=== PATIENT | male | born 1980 | race Caucasian/White ===

== ENCOUNTER 2017-06-30 15:30 | Emergency (ER) | payer OTHER ==
[~2017-06-30] VITALS: Ht 188 cm; Wt 99.8 kg
[2017-06-30 15:43] VITALS: BP 137/90
== END 2017-06-30 16:47 | disposition home or self-care (01) ==
LOC: ER 15:31
DX: F41.9 Anxiety disorder, unspecified (principal); Z76.0 Encounter for issue of repeat prescription; F42.9 Obsessive-compulsive disorder, unspecified; I10 Essential (primary) hypertension; F17.200 Nicotine dependence, unspecified, uncomplicated
CPT/HCPCS: 99283; A4606; Z7610

== ENCOUNTER 2017-07-08 12:07 | Emergency (ER) | payer OTHER ==
[~2017-07-08] VITALS: Ht 188 cm; Wt 68.0 kg
[2017-07-08 12:07] VITALS: BP 138/88
--- NOTE | 2017-07-08 12:20 | NUR ---
PT WALKED INTO ER FOR BLISTERS ON FEET PT HOMELESS ALERT WITH ORIENTATION X 4
--- NOTE | 2017-07-08 12:39 | NUR ---
Patient discharged to home in stable condition. Written and verbal after care instructions given. Patient verbalizes understanding of instruction. PT HAD BOTH FEET WRAPPED WITH GAUZE DISCHARGE HOME WITH PRESCRIPTION
== END 2017-07-08 12:38 | disposition home or self-care (01) ==
LOC: ER 12:18
DX: S90.822A Blister (nonthermal), left foot, initial encounter (principal); S90.821A Blister (nonthermal), right foot, initial encounter; F41.9 Anxiety disorder, unspecified; F42.9 Obsessive-compulsive disorder, unspecified; I10 Essential (primary) hypertension; F17.200 Nicotine dependence, unspecified, uncomplicated; Z59.0 Homelessness; X58.XXXA Exposure to other specified factors, initial encounter; Y93.01 Activity, walking, marching and hiking; Y92.89 Other specified places as the place of occurrence of the external cause; Y99.8 Other external cause status
CPT/HCPCS: 99283; A4606; A6402; Z7610

== ENCOUNTER 2017-09-13 15:37 | Emergency (ER) | payer OTHER ==
[~2017-09-13] VITALS: Ht 188 cm; Wt 77.1 kg
[2017-09-13 15:37] VITALS: BP 135/92
== END 2017-09-13 17:22 | disposition home or self-care (01) ==
LOC: ER 15:40
DX: M79.671 Pain in right foot (principal); Z76.0 Encounter for issue of repeat prescription; F41.9 Anxiety disorder, unspecified; K12.0 Recurrent oral aphthae; I10 Essential (primary) hypertension; F42.9 Obsessive-compulsive disorder, unspecified; F17.200 Nicotine dependence, unspecified, uncomplicated; Z59.0 Homelessness
CPT/HCPCS: 73630; 99284; 99406; A4606; Z7610

== ENCOUNTER 2018-04-19 13:11 | Emergency (ER) | payer OTHER ==
[~2018-04-19] VITALS: Ht 188 cm; Wt 77.1 kg
[2018-04-19 13:17] VITALS: BP 149/107
== END 2018-04-19 14:18 | disposition home or self-care (01) ==
LOC: ER 13:11
DX: B86 Scabies (principal); F17.200 Nicotine dependence, unspecified, uncomplicated; I10 Essential (primary) hypertension; F32.9 Major depressive disorder, single episode, unspecified; Z59.0 Homelessness
CPT/HCPCS: 99283; 99406; A4606; Z7610

== ENCOUNTER 2019-06-06 10:13 | Emergency (ER) | payer OTHER ==
[~2019-06-06] VITALS: Ht 177.8 cm; Wt 79.4 kg
[2019-06-06 10:27] VITALS: BP 144/86
--- NOTE | 2019-06-06 11:18 | NUR ---
PT PROVIDED W/ WOUND CARE. PROVIDED W/ MEAL TRAY. PT SIGNED HOMELESS WAIVER. D/C IN STABLE CONDITION.
== END 2019-06-06 11:23 | disposition home or self-care (01) ==
LOC: ER 10:18
DX: S90.522A Blister (nonthermal), left ankle, initial encounter (principal); S90.521A Blister (nonthermal), right ankle, initial encounter; S90.425A Blister (nonthermal), left lesser toe(s), initial encounter; S90.424A Blister (nonthermal), right lesser toe(s), initial encounter; I10 Essential (primary) hypertension; F17.200 Nicotine dependence, unspecified, uncomplicated; Z59.0 Homelessness; X58.XXXA Exposure to other specified factors, initial encounter; Y93.01 Activity, walking, marching and hiking; Y92.89 Other specified places as the place of occurrence of the external cause; Y99.8 Other external cause status
CPT/HCPCS: 99281; A6403

== ENCOUNTER 2019-08-25 14:42 | Emergency (ER) | payer OTHER ==
[~2019-08-25] VITALS: Ht 182.9 cm; Wt 68.0 kg
[2019-08-25 14:53] VITALS: BP 139/93
--- NOTE | 2019-08-25 14:58 | NUR ---
Patient changed his mind and walked out- Eloped. notified
== END 2019-08-25 14:59 | disposition home or self-care (01) ==
LOC: ER 14:46
DX: Z53.21 Procedure and treatment not carried out due to patient leaving prior to being seen by health care provider (principal); I10 Essential (primary) hypertension; F32.9 Major depressive disorder, single episode, unspecified; Z59.0 Homelessness